=== PATIENT | male | born 1965 | race Caucasian/White ===

== ENCOUNTER 2022-06-22 09:58 | Emergency (ER) | payer OTHER | END 2022-06-22 10:40 | LOC: FB.ED 09:58 | DX: S11.93XA Puncture wound without foreign body of unspecified part of neck, initial encounter (principal); S30.0XXA Contusion of lower back and pelvis, initial encounter; S70.12XA Contusion of left thigh, initial encounter; F30.9 Manic episode, unspecified | CPT/HCPCS: 99283; 99285 ==